=== PATIENT | female | born 1995 | race Caucasian/White ===

== ENCOUNTER 2019-06-28 21:32 | Emergency (ER) | payer OTHER ==
[2019-06-28 21:53] VITALS: BP 134/68; PULSE 63
[2019-06-28] MEDS ORDERED: HYDROmorphone 0.5 MG/0.5 ML Syringe IVPUSH ONE (22:08)
[2019-06-28] MEDS ORDERED: Ondansetron 4 MG/2 ML SDV IVPUSH ONE (22:08)
[2019-06-28] MEDS ORDERED: Sodium Chloride 0.9% 1,000 ML IV SCH (22:15)
--- NOTE | 2019-06-28 22:24 | EDM.PDOC ---
ED HPI GENERAL MEDICAL PROBLEM - General Chief Complaint: Abdominal Pain Stated Complaint: UPPER ABDOMINAL PAIN Time Seen by Provider: 06/28/19 21:53 Source of Information: Reports: Patient History Limitations: Reports: No Limitations - History of Present Illness INITIAL COMMENTS - FREE TEXT/NARRATIVE: This is a 23-year-old female. She was diagnosed with gallstones sometime ago and they actually found it incidentally with another study. She says that the gallstones have not bothered her until yesterday. She apparently ate something and it flared up for several hours and then seemed to resolve. The pain was in the right upper quadrant with nausea but no vomiting and it would radiate slightly into her right flank area. Tonight around 6 PM she had a greasy meal and had onset of right upper quadrant pain with nausea and radiation to her back but no vomiting. She denies any fever. She comes to the ER because the continued right upper quadrant pain. She has had no diarrhea. - Related Data Allergies Allergy/AdvReac Type Severity Reaction Status Date / Time No Known Allergies Allergy Verified 06/28/19 21:49 Home Meds: Home Meds . [No Known Home Meds] 02/22/16 [History] Past Medical History Musculoskeletal History: Reports: Other (See Below) Other Musculoskeletal History: right femur and right ankle surgery at young age Social & Family History - Tobacco Use Smoking Status *Q: Never Smoker Second Hand Smoke Exposure: No - Caffeine Use Caffeine Use: Reports: Soda - Recreational Drug Use Recreational Drug Use: No ED ROS GENERAL - Review of Systems Review Of Systems: See Below Constitutional: Denies: Fever, Chills HEENT: Reports: No Symptoms Respiratory: Reports: No Symptoms Cardiovascular: Reports: No Symptoms Endocrine: Reports: No Symptoms GI/Abdominal: Reports: Abdominal Pain, Nausea. Denies: Constipation, Diarrhea, Vomiting : Reports: No Symptoms Musculoskeletal: Reports: No Symptoms Skin: Reports: No Symptoms Neurological: Reports: No Symptoms Psychiatric: Reports: No Symptoms Hematologic/Lymphatic: Reports: No Symptoms ED EXAM, GI/ABD - Physical Exam Exam: See Below Exam Limited By: No Limitations General Appearance: Alert, WD/WN, No Apparent Distress Eyes: Bilateral: Normal Appearance Ears: Normal External Exam Nose: Normal Inspection Throat/Mouth: Normal Inspection, Normal Lips, Normal Voice, No Airway Compromise Head: Normocephalic Neck: Supple Respiratory/Chest: No Respiratory Distress, Lungs Clear, Normal Breath Sounds Cardiovascular: Regular Rate, Rhythm, No Murmur GI/Abdominal Exam: Soft, Other (She is very tender in the right upper quadrant on palpation with a positive Smith sign, there is no other abdominal tenderness on palpation bowel sounds are positive but they are decreased and there is no peritoneal irritation) Back Exam: Full Range of Motion Extremities: Normal Inspection, Normal Range of Motion Neurological: Alert, Oriented Psychiatric: Normal Affect, Normal Mood Skin Exam: Warm, Dry Course - Vital Signs Last Recorded V/S: Last Vital Signs Temp 98.2 F 06/28/19 21:52 Pulse 63 06/28/19 21:52 Resp 16 06/28/19 21:52 BP 134/68 06/28/19 21:52 Pulse Ox 98 06/28/19 21:52 - Orders/Labs/Meds Orders: Active Orders 24 hr Category Date Time Status Abdomen Ltd [US] Stat Exams 06/28/19 23:27 Taken Sodium Chloride 0.9% [Normal Saline] 1,000 ml Med 06/28/19 22:15 Active IV ASDIRECTED Medication Orders Sodium Chloride (Normal Saline) 1,000 mls @ 1,000 mls/hr IV ASDIRECTED CARLITO Last Admin: 06/28/19 22:27 Dose: 1,000 mls/hr Labs: Laboratory Tests 06/28/19 06/28/19 Range/Units 22:20 22:20 WBC 12.09 H (3.98-10.04) K/mm3 RBC 4.71 (3.98-5.22) M/mm3 Hgb 14.4 (11.2-15.7) gm/dl Hct 42.6 (34.1-44.9) % MCV 90.4 (79.4-94.8) fl MCH 30.6 (25.6-32.2) pg MCHC 33.8 (32.2-35.5) g/dl RDW Std Deviation 39.5 (36.4-46.3) fL Plt Count 372 H D (182-369) K/mm3 MPV 9.8 (9.4-12.3) fl Neut % (Auto) 60.8 (34.0-71.1) % Lymph % (Auto) 26.6 (19.3-51.7) % [place] % (Auto) 10.0 (4.7-12.5) % Eos % (Auto) 2.2 (0.7-5.8) Baso % (Auto) 0.2 (0.1-1.2) % Neut # (Auto) 7.34 H (1.56-6.13) K/mm3 Lymph # (Auto) 3.22 (1.18-3.74) K/mm3 [place] # (Auto) 1.21 H (0.24-0.36) K/mm3 Eos # (Auto) 0.27 (0.04-0.36) K/mm3 Baso # (Auto) 0.02 (0.01-0.08) K/mm3 Manual Slide Review Normal smear Sodium 140 (136-145) mEq/L Potassium 3.9 (3.5-5.1) mEq/L Chloride 102 (98-107) mEq/L Carbon Dioxide 28 (21-32) mEq/L Anion Gap 13.9 (5-15) BUN 7 (7-18) mg/dL Creatinine 0.9 (0.55-1.02) mg/dL Est Cr Clr Drug Dosing 97.23 mL/min Estimated GFR (MDRD) > 60 (>60) mL/min BUN/Creatinine Ratio 7.8 L (14-18) Glucose 160 H (74-106) mg/dL Calcium 8.9 (8.5-10.1) mg/dL Total Bilirubin 0.7 (0.2-1.0) mg/dL AST 199 H (15-37) U/L ALT 239 H (14-59) U/L Alkaline Phosphatase 152 H (46-116) U/L Total Protein 7.5 (6.4-8.2) g/dl Albumin 3.6 (3.4-5.0) g/dl Globulin 3.9 gm/dL Albumin/Globulin Ratio 0.9 L (1-2) Lipase 185 (73-393) U/L Meds: Medications Generic Name Dose Route Start Last Admin Trade Name Freq PRN Reason Stop Dose Admin Sodium Chloride 1,000 mls @ 1,000 mls/hr 06/28/19 22:15 06/28/19 22:27 Normal Saline IV 1,000 mls/hr ASDIRECTED CARLITO Administration Discontinued Medications Generic Name Dose Route Start Last Admin Trade Name Freq PRN Reason Stop Dose Admin Hydromorphone HCl 0.5 mg 06/28/19 22:08 06/28/19 22:18 Dilaudid IVPUSH 06/28/19 22:09 0.5 mg ONETIME ONE Administration Ondansetron HCl 4 mg 06/28/19 22:08 06/28/19 22:18 Zofran IVPUSH 06/28/19 22:09 4 mg ONETIME ONE Administration - Radiology Interpretation Free Text/Narrative:: Ultrasound shows cholelithiasis [place]ou with a positive Smith sign suggesting cholecystitis - Re-Assessments/Exams Free Text/Narrative Re-Assessment/Exam: 06/29/19 01:15 I spoke to the patient regarding her ultrasound results. I have referred her to the surgeon that is test lead application testing and she is to call him Sunday at 8 AM to get an appointment to be seen to have her gallbladder removed. The patient understands of the pain comes back with a vengeance or she starts running a fever she needs to return to the ER. Departure - Departure Time of Disposition: :16 Disposition: Home, Self-Care 01 Condition: Fair Clinical Impression: Right upper quadrant abdominal pain, Elevated liver enzymes Cholelithiasis Qualifiers: Cholelithiasis location: gallbladder Cholecystitis presence: without cholecystitis Biliary obstruction: without biliary obstruction Qualified Code(s) : K80.20 - Calculus of gallbladder without cholecystitis without obstruction - Discharge Information *PRESCRIPTION DRUG MONITORING PROGRAM REVIEWED*: No *COPY OF PRESCRIPTION DRUG MONITORING REPORT IN PATIENT HUNTER: No Instructions: Cholelithiasis Referrals: Popeye Rodriguez MD [Physician] - Forms: ED Department Discharge Additional Instructions: Avoid all oily, greasy or fried foods and milk because that will make your gallbladder hurt, call Dr. Rodriguez Sunday at 8 AM for an appointment to be seen and make sure you tell them that you are in the ER for a gallbladder attack Sunday and the doctor suggested you need to get your gallbladder taken out, if you develop a fever greater than 101 or the pain gets severe return to the ER Sepsis Event Note - Evaluation Sepsis Screening Result: No Definite Risk - Focused Exam Vital Signs: Vital Signs Temp Pulse Resp BP Pulse Ox 06/28/19 21:52 98.2 F 63 16 134/68 98 Date Exam was Performed: 06/29/19 Time Exam was Performed: 01:15 - My Orders Last 24 Hours: My Active Orders 06/28/19 22:15 Sodium Chloride 0.9% [Normal Saline] 1,000 ml IV ASDIRECTED 06/28/19 23:27 Abdomen Ltd [US] Stat - Assessment/Plan Last 24 Hours: My Active Orders 06/28/19 22:15 Sodium Chloride 0.9% [Normal Saline] 1,000 ml IV ASDIRECTED 06/28/19 23:27 Abdomen Ltd [US] Stat
--- NOTE | 2019-06-29 17:49 | US ---
Limited abdominal ultrasound: Multiple real-time images of the upper right abdomen were obtained. Comparison: No prior abdominal imaging is available. Findings: Right kidney shows no hydronephrosis or mass. 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 Right kidney otherwise has a normal ultrasound appearance. Right kidney has a length of 11.3 cm. Liver is somewhat echogenic likely representing fatty infiltration. Shadowing noted within the gallbladder presumably due to either single large gallstone or multiple gallstones with gallbladder being contracted around these findings. Gallbladder wall is somewhat thickened. No biliary duct dilatation is seen. Pancreas poorly seen. Visualized portions of the pancreas are unremarkable. Inferior vena cava is patent. Main portal vein shows normal hepatopedal flow. Impression: 1. Contracted gallbladder around a large gallstone or around nonvisualized multiple gallstones. Gallbladder wall is somewhat thickened but no biliary duct dilatation is seen. 2. Fatty infiltration within the liver. 3. Other findings as noted above believed to be incidental. Diagnostic code #3 This report was dictated in [place] Standard Time I agree with preliminary report from [facility], finalized on 06/29/19, 1:51 AM Central Time
== END 2019-06-29 01:28 | disposition home or self-care (01) ==
LOC: JD.ED 21:32
DX: K80.20 Calculus of gallbladder without cholecystitis without obstruction (principal); R74.8 Abnormal levels of other serum enzymes
CPT/HCPCS: 36415; 76705; 80053; 83690; 85025; 96361; 96374; 96375; 99284; J1170; J2405; J7030

== ENCOUNTER 2019-06-30 19:51 | Emergency (ER) | payer OTHER ==
[2019-06-30 20:08] VITALS: BP 161/104; PULSE 63
[2019-06-30] MEDS ORDERED: Sodium Chloride 0.9% 10 ML Syringe FLUSH PRN (20:28)
[2019-06-30] MEDS ORDERED: HYDROmorphone 0.5 MG/0.5 ML Syringe IVPUSH ONE ×2 (20:28→22:22)
[2019-06-30] MEDS ORDERED: Ondansetron 4 MG/2 ML SDV IVPUSH ONE (20:28)
--- NOTE | 2019-06-30 20:39 | EDM.PDOC ---
ED HPI GENERAL MEDICAL PROBLEM - General Chief Complaint: Abdominal Pain Stated Complaint: ABDOMINAL PAIN Time Seen by Provider: 06/30/19 20:15 Source of Information: Reports: Patient, RN Notes Reviewed History Limitations: Reports: No Limitations - History of Present Illness INITIAL COMMENTS - FREE TEXT/NARRATIVE: Patient is a 23-year-old female who presents to the ED for evaluation of right upper quadrant pain. She was evaluated in this ER 2 nights ago, she had laboratory evaluation which demonstrated elevated liver enzymes, she had ultrasound that demonstrated gallstones. She notes that she did follow-up with a surgeon, Dr. Brewster at [facility], and has an appointment for the 24th for consult for surgery. Patient notes that today she is having increased right upper quadrant pain, and she was concerned that something may have become blocked. She states that she is having nausea but no vomiting at this time. She states that her stool is changed to a dark green in color. She has been taking Motrin, and ibuprofen, her last dose about 3 hours ago. She states that there is a constant burning/stabbing pain that radiates into her back. She has been drinking more fluids, but states she has not really been able to eat much and her last meal was at around 2 PM today. She did have a low-grade fever at home of 99.8 F. Right Upper Abdomen Pain Score (Numeric/FACES): 8 - Related Data Allergies Allergy/AdvReac Type Severity Reaction Status Date / Time No Known Allergies Allergy Verified 06/30/19 20:08 Home Meds: Home Meds . [No Known Home Meds] 02/22/16 [History] Past Medical History Gastrointestinal History: Reports: Cholelithiasis Musculoskeletal History: Reports: Other (See Below) Other Musculoskeletal History: right femur and right ankle surgery at young age - Past Imaging History Past Imaging History: Reports: Ultrasound (gallbladder US) Social & Family History - Family History Family Medical History: Noncontributory - Tobacco Use Smoking Status *Q: Never Smoker - Caffeine Use Caffeine Use: Reports: Soda - Recreational Drug Use Recreational Drug Use: No ED ROS GENERAL - Review of Systems Review Of Systems: See Below Constitutional: Reports: Fever, Chills, Decreased Appetite Respiratory: Denies: Shortness of Breath, Cough Cardiovascular: Denies: Chest Pain GI/Abdominal: Reports: Abdominal Pain (RUQ w radiation to her back), Nausea. Denies: Constipation, Diarrhea, Vomiting : Denies: Dysuria, Flank Pain, Frequency, Urgency Musculoskeletal: Reports: Back Pain ED EXAM, GI/ABD - Physical Exam Exam: See Below Exam Limited By: No Limitations General Appearance: Alert, WD/WN, No Apparent Distress Eyes: Bilateral: Normal Appearance Ears: Normal External Exam Nose: Normal Inspection Throat/Mouth: Normal Inspection, Normal Lips, Normal Teeth, Normal Gums, Normal Oropharynx, Normal Voice, No Airway Compromise Head: Atraumatic, Normocephalic Neck: Normal Inspection Respiratory/Chest: No Respiratory Distress, Lungs Clear, Normal Breath Sounds, No Accessory Muscle Use, Chest Non-Tender Cardiovascular: Normal Peripheral Pulses, Regular Rate, Rhythm, No Murmur GI/Abdominal Exam: Normal Bowel Sounds, Soft, No Organomegaly, No Distention, No Mass, Guarding, Tender (RUQ, Smith sign positive). No: Rigid, Rebound Extremities: Normal Inspection, Normal Capillary Refill Neurological: Alert, Oriented, Normal Cognition, No Motor/Sensory Deficits Psychiatric: Normal Affect, Normal Mood Skin Exam: Warm, Dry, Intact, Normal Color, No Rash Course - Vital Signs Last Recorded V/S: Last Vital Signs Temp 97.8 F 06/30/19 20:02 Pulse 63 06/30/19 20:02 Resp 16 06/30/19 20:02 BP 161/104 H 06/30/19 20:02 Pulse Ox 99 06/30/19 20:02 - Orders/Labs/Meds Orders: Active Orders 24 hr Category Date Time Status Peripheral IV Care [RC] . DIRECTED Care 06/30/19 20:29 Active Abdomen Ltd [US] Stat Exams 06/30/19 20:28 Taken LIPASE [CHEM] Stat Lab 06/30/19 21:50 Ordered Sodium Chloride 0.9% [Saline Flush] Med 06/30/19 20:28 Active 10 ml FLUSH ASDIRECTED PRN Peripheral IV Insertion Adult [OM.PC] Stat Oth 06/30/19 20:28 Ordered Medication Orders Sodium Chloride (Saline Flush) 10 ml FLUSH ASDIRECTED PRN PRN Reason: Keep Vein Open Last Admin: 06/30/19 20:48 Dose: 10 ml Labs: Laboratory Tests 06/30/19 06/30/19 Range/Units 20:45 20:45 WBC 10.75 H (3.98-10.04) K/mm3 RBC 4.61 (3.98-5.22) M/mm3 Hgb 14.1 (11.2-15.7) gm/dl Hct 42.1 (34.1-44.9) % MCV 91.3 (79.4-94.8) fl MCH 30.6 (25.6-32.2) pg MCHC 33.5 (32.2-35.5) g/dl RDW Std Deviation 40.6 (36.4-46.3) fL Plt Count 336 (182-369) K/mm3 MPV 9.7 (9.4-12.3) fl Neutrophils % (Manual) 63 H (40-60) % Band Neutrophils % 1 (0-10) % Lymphocytes % (Manual) 29 (20-40) % Atypical Lymphs % 0 % Monocytes % (Manual) 6 (2-10) % Eosinophils % (Manual) 1 (0.7-5.8) % Basophils % (Manual) 0 L (0.1-1.2) Platelet Estimate Adequate RBC Morph Comment Normal Sodium 139 (136-145) mEq/L Potassium 3.9 (3.5-5.1) mEq/L Chloride 101 (98-107) mEq/L Carbon Dioxide 28 (21-32) mEq/L Anion Gap 13.9 (5-15) BUN 12 (7-18) mg/dL Creatinine 0.8 (0.55-1.02) mg/dL Est Cr Clr Drug Dosing 109.38 mL/min Estimated GFR (MDRD) > 60 (>60) mL/min BUN/Creatinine Ratio 15.0 (14-18) Glucose 133 H (74-106) mg/dL Calcium 9.3 (8.5-10.1) mg/dL Total Bilirubin 1.1 H (0.2-1.0) mg/dL GGT 1229 H (5-55) U/L AST 199 H (15-37) U/L ALT 489 H (14-59) U/L Alkaline Phosphatase 179 H (46-116) U/L Total Protein 7.7 (6.4-8.2) g/dl Albumin 3.7 (3.4-5.0) g/dl Globulin 4.0 gm/dL Albumin/Globulin Ratio 0.9 L (1-2) Meds: Medications Generic Name Dose Route Start Last Admin Trade Name Freq PRN Reason Stop Dose Admin Sodium Chloride 10 ml 06/30/19 20:28 06/30/19 20:48 Saline Flush FLUSH 10 ml ASDIRECTED PRN Administration Keep Vein Open Discontinued Medications Generic Name Dose Route Start Last Admin Trade Name Freq PRN Reason Stop Dose Admin Hydromorphone HCl 0.5 mg 06/30/19 20:28 06/30/19 20:47 Dilaudid IVPUSH 06/30/19 20:29 0.5 mg ONETIME ONE Administration Ondansetron HCl 4 mg 06/30/19 20:28 06/30/19 20:47 Zofran IVPUSH 06/30/19 20:29 4 mg ONETIME ONE Administration - Re-Assessments/Exams Free Text/Narrative Re-Assessment/Exam: 06/30/19 20:39 Patient presents to the ED for the evaluation of increasing right upper quadrant pain with developing fever. She did have an ultrasound done at her last ED visit, this demonstrated gallstones and possible cholecystitis. She was directed to go home and follow-up with surgery, for which she has. She has subsequently developed a fever, and worsening symptoms with nausea as well. I will repeat her labs and ultrasound, will include a GGT, CBC and CMP. 06/30/19 21:40 Patient's labs are done, liver enzymes are still elevated, GGT is also elevated at 1229, ultrasound did come back with cholelithiasis, and a dilated common bile duct measuring 8 mm, given the presence of gallstones choledocholithiasis cannot be excluded, consider MRCP for further evaluation. I did go over the results with our surgeon on-call, Dr. Brewster, and she recommends transfer to [place] for ERCP and further management. I will discuss this with the patient at this time. 06/30/19 21:54 I have called [facility] in [place] for transfer. Dr. Woo does accept the patient at this time for observation and further management. She recommends ceftriaxone and Flagyl be given, in route to their facility. Have ordered this. Patient will get some IV Dilaudid before transfer as well. Departure - Departure Time of Disposition: 22:23 Disposition: DC/Tfer to Acute Hospital 02 Condition: Fair Clinical Impression: Cholecystitis - Discharge Information *PRESCRIPTION DRUG MONITORING PROGRAM REVIEWED*: No *COPY OF PRESCRIPTION DRUG MONITORING REPORT IN PATIENT HUNTER: No Referrals: PCP,None [Primary Care Provider] - Forms: ED Department Discharge Sepsis Event Note - Evaluation Sepsis Screening Result: No Definite Risk - Focused Exam Vital Signs: Vital Signs Temp Pulse Resp BP Pulse Ox 06/30/19 20:02 97.8 F 63 16 161/104 H 99 Date Exam was Performed: 06/30/19 Time Exam was Performed: 21:54 - My Orders Last 24 Hours: My Active Orders 06/30/19 20:28 Abdomen Ltd [US] Stat Sodium Chloride 0.9% [Saline Flush] 10 ml FLUSH ASDIRECTED PRN Peripheral IV Insertion Adult [OM.PC] Stat 06/30/19 20:29 Peripheral IV Care [RC] . DIRECTED 06/30/19 21:50 LIPASE [CHEM] Stat - Assessment/Plan Last 24 Hours: My Active Orders 06/30/19 20:28 Abdomen Ltd [US] Stat Sodium Chloride 0.9% [Saline Flush] 10 ml FLUSH ASDIRECTED PRN Peripheral IV Insertion Adult [OM.PC] Stat 06/30/19 20:29 Peripheral IV Care [RC] . DIRECTED 06/30/19 21:50 LIPASE [CHEM] Stat
[2019-06-30] MEDS ORDERED: metroNIDAZOLE/Normal Saline 500 MG in Premix Bag 1 BAG IV ONE (22:03)
[2019-06-30] MEDS ORDERED: cefTRIAXone 2 GM in Sodium Chloride 0.9% 100 ML IV ONE (22:03)
[2019-06-30] MEDS ORDERED: cefTRIAXone 2 GM in Sodium Chloride 0.9% 100 ML IV SCH (22:15)
--- NOTE | 2019-07-01 07:51 | US ---
Limited abdominal ultrasound: Multiple real-time images of the upper right abdomen were obtained. Comparison: Previous limited abdominal ultrasound of 06/28/19. Liver is echogenic compatible with fatty infiltration. Continuing shadowing is noted within the gallbladder fossa compatible with contracted gallbladder around gallstones. Gallbladder wall appears within normal limits in thickness as seen. Common bile duct measures mildly prominent at 1.0, prior exam showed the CBD to measure 5 mm. Right kidney shows no hydronephrosis. Right kidney shows a small echogenic area possibly due to small angiomyolipoma since this does not shadow. This was noted on previous exam and is unchanged. Right kidney has a length of 12.1 cm. Pancreas is incompletely seen. Visualized portions of the pancreas shows no discrete abnormality. Inferior vena cava is patent. Main portal vein shows hepatopedal flow. Impression: 1. Contracted gallbladder around gallstones. 2. Common bile duct mildly prominent up to 1.0 cm. This is an interval change from prior study and difficult to exclude choledocholithiasis. MRCP would be helpful to further evaluate. 3. Fatty infiltration within the liver. 4. Small echogenic area within the right kidney which is stable. Diagnostic code #3 This report was dictated in [place] Standard Time I agree with preliminary report from [facility], finalized on 06/30/19, 10:33 PM Central Time
== END 2019-06-30 22:43 ==
LOC: JD.ED 19:51
DX: K80.10 Calculus of gallbladder with chronic cholecystitis without obstruction (principal)
CPT/HCPCS: 36415; 76705; 80053; 82977; 83690; 85007; 85027; 96365; 96375; 96376; 99285; J0696; J1170; J2405; J3490; J7050; 99284